=== PATIENT | male | born 1960 | race Caucasian/White ===

== ENCOUNTER 2017-02-20 13:17 | Emergency (ER) | payer BC ==
[~2017-02-20] VITALS: Ht 170.2 cm; Wt 70.0 kg
[2017-02-20 13:21] VITALS: BP 157/81; PULSE 66; RESP 18; TEMP 97.9; O2SAT 99
--- NOTE | 2017-02-20 13:26 | PD ---
HPI . Cyst on back for one week Chief Complaint: Skin Problem Time Seen by Provider: 13:25 Travel History International Travel<30 days: No Contact w/Intl Traveler<30days: No Traveled to known affect area: No History of Present Illness HPI 57-year-old male here with complaints of a cyst on his back for one week. Patient says he had the same cyst about July 2016 and was given antibiotics and it resolved in about a week's time. He says it recently flared up about a week ago. He denies any fever or chills. He denies any insect bite or sting to the area. He has no other complaints. PFSH Past Medical History Medical History: Denies Significant Hx Social History Tobacco Use: No Allergies-Medications (Allergen,Severity, Reaction): Coded Allergies: No Known Allergies (Unverified , 02/20/17) Reported Meds & Prescriptions Reported Meds & Active Scripts Active Bactrim DS (Sulfamethoxazole-Trimethoprim) 800-160 Mg Tab 1 Tab PO BID Review of Systems General / Constitutional: No: Fever Eyes: No: Visual changes HENT: No: Headaches Cardiovascular: No: Chest Pain or Discomfort Respiratory: No: Shortness of Breath Gastrointestinal: No: Abdominal Pain Genitourinary: No: Dysuria Musculoskeletal: No: Pain Skin: Positive Other (infected cyst on back), No Rash Neurologic: No: Weakness Psychiatric: No: Depression Endocrine: No: Polydipsia Hematologic/Lymphatic: No: Easy Bruising Physical Exam Narrative GENERAL: AAO x 3, no acute distress, Well-nourished, well-developed patient. SKIN: Warm and dry. No visible rashes or bruising. back T spine upper with sebaceous cyst 2.7 cm x 3 cm, erythematous, HEAD: Normocephalic and atraumatic. EYES: No scleral icterus. No injection or drainage. ENT: No nasal drainage noted. Airway patent. NECK: Supple, trachea midline. No JVD. CARDIOVASCULAR: Regular rate and rhythm without murmurs, gallops, or rubs. RESPIRATORY: Breath sounds equal bilaterally. No accessory muscle use. No rhonchi or rales. GASTROINTESTINAL: visual inspection normal EXTREMITIES: No cyanosis or edema. BACK: Nontender without obvious deformity. No CVA tenderness. PSYCH: AAO x 3, normal affect. Data Data Last Documented VS Vital Signs Date Time Temp Pulse Resp B/P Pulse Ox O2 Delivery O2 Flow Rate FiO2 02/20/17 13:21 97.9 66 18 157/81 99 Orders Wound Culture And Gram Stain (02/20/17 13:28) Lidocaine 1% Inj (50 Ml) (Xylocaine 1% I (02/20/17 13:30) Lidocaine 1% Inj (Xylocaine 1% Inj) (02/20/17 13:30) Wound Care (02/20/17 13:42) MDM Medical Decision Making Medical Screen Exam Complete: Yes Emergency Medical Condition: Yes Medical Record Reviewed: Yes Differential Diagnosis abscess, sebaceous cyst, less likely lipoma Narrative Course This is a 57-year-old male here with infected cyst to his upper T-spine. It's been there approximately one week. He has given verbal consent for incision and drainage. Procedure was performed. Patient tolerated without incident. Bactrim provided for antibiotic coverage. Ultimately he will need to see a plastic surgeon or general surgeon to have this cyst permanently removed by having the sac taken out. Patient verbalized understanding of instructions, questions were answered, and thanked me for their care. I advised them if their condition worsens, please return to the nearest emergency room for further care. Procedures Procedure Narrative After the risks and benefits were discussed the following procedure was performed: INCISION AND DRAINAGE OF ABSCESS: The area was prepped and was sterilely draped. A subcutaneous wheal of 1% % Xylocaine with a total number 5 mL was used to anesthetize the area. The area was properly anesthetized. A number 11 scalpel was used to make a 1-cm incision across the area of the abscess. Cultures were obtained. Loculations were broken up. The abscess was drained an irrigated with normal saline. Sterile dressing applied. Diagnosis Primary Impression: Infected cyst of skin Additional Impression: Sebaceous cyst Patient Instructions: General Instructions Additional Instructions: Please return to emergency department if your symptoms return or worsen. Follow up with your primary care provider. Take medications as prescribed. Keep area clean with soap and water daily. Apply clean dressing every day. Follow-up with your primary care provider for referral to have the cyst surgically assessed for removal of the sac. [place] for worsening signs of infection which include fever, increased redness , increased warmth, purulent drainage, increased swelling or streaking. If any of these develop, please go to the nearest emergency room. Med/Other Pt SpecificInfo: Prescription(s) given Scripts Sulfamethoxazole-Trimethoprim (Bactrim DS)800-160 Mg Tab1 Tab PO BID #20 TAB Prov:Solange Thomason 02/20/17 Disposition: 01 DISCHARGE HOME Condition: Stable Solange Thomason February 20, 2017 13:25 Solange Thomason February 20, 2017 13:25
[2017-02-20] MEDS ORDERED: LIDOCAINE HCL 1% 30 ML VIAL ONE (13:30)
[2017-02-20] MEDS ORDERED: LIDOCAINE HCL 1% 50 ML VIAL INFIL ONE (13:30)
[2017-02-20] MEDS ORDERED: BACT800T5 PO ×2 (13:43→13:50)
== END 2017-02-20 14:16 | disposition home or self-care (01) ==
LOC: NEPK 13:17
DX: L72.3 Sebaceous cyst (principal)
CPT/HCPCS: 10060; 86403; 87070; 87205